=== PATIENT | male | born 1975 | race Caucasian/White ===

== ENCOUNTER 2016-12-18 10:16 | Emergency (ER) | payer OTHER ==
[~2016-12-18 10:16] MED LIST: AUGMENTIN TAB875 MG PO; LEVEMIR100 UNIT/1 SC; NOVOLOG100 UNIT/1 SC; ZESTRIL5 MG PO
[2016-12-18 12:07] LABS: HEMOGLOBIN 16.2 gm/dl (14.0-17.5); RED BLOOD COUNT 5.51 M/UL (4.20-5.50); WHITE BLOOD COUNT 13.9 K/UL (4.5-11.0)
[2016-12-18 12:51] LABS: BUN/CREATININE RATIO 18 (0-10)
== END 2016-12-18 15:40 | disposition home or self-care (01) ==
LOC: ER1 10:16
PROVIDERS: Physician Assistant Medical
DX: L05.01 Pilonidal cyst with abscess (principal); R11.0 Nausea; E11.9 Type 2 diabetes mellitus without complications; F17.210 Nicotine dependence, cigarettes, uncomplicated; Z88.5 Allergy status to narcotic agent; Z79.84 Long term (current) use of oral hypoglycemic drugs
CPT/HCPCS: 10061; 80053; 85025; 87070; 87205; 96374; 96375; 99283; J2270; J2405; J7050; Q9962

== ENCOUNTER 2022-03-05 11:19 | Emergency (ER) | payer OTHER ==
[2022-03-05] MEDS ORDERED: BACTRIM DS TAB1 EACH PO (13:25)
[2022-03-05] MEDS ORDERED: CEPHALEXIN500 M1 PO (13:25)
== END 2022-03-05 13:40 | disposition home or self-care (01) ==
LOC: ER1 11:19
DX: L02.214 Cutaneous abscess of groin (principal); E11.9 Type 2 diabetes mellitus without complications
CPT/HCPCS: 10060; 87070; 87077; 87186; 87205; 99283